=== PATIENT | male | born 1990 | race African-American/Black ===

== ENCOUNTER 2020-02-10 10:34 | Emergency (ER) | payer MEDICAID, SELFPAY ==
[2020-02-10 10:47] VITALS: BP 144/76; PULSE 83; RESP 15; TEMP 36.5; O2SAT 100
--- NOTE | 2020-02-10 11:09 | ED.GENADUL_ITS ---
Discharge Plan Disposition Patient Disposition: HOME Condition: Stable Discharge Details Chief Complaint: GenMedical Clinical Impression: Encounter for medication refill Primary Care Provider: None,None ED Provider: Breanna Garcia Home Meds and New Rx's Prescriptions: New quetiapine [Seroquel] 400 mg tablet 400 mg PO DAILY 10 Days Qty: 10 RF: 0 Discharge Instructions Instructions: Medicine Refill (ED) Additional Instructions: You were placed on a follow-up list for to establish primary care provider. At this time I am unable to refill your Ritalin prescription I will give you 10 days of the Seroquel. You need to be properly evaluated by primary care for the Ritalin prescription. Follow up with primary care provider in 3-5 days. Return to ED sooner if any worsening or concerns. Increase oral fluids. [facility] said that you are on a cancellation list so if they have a cancellation prior to the they will call you. Medical Decision Making 1110: Gissel from care management called and discussed patient case with her. She is going to call [facility] deceiving get a sooner appointment. [facility] checked and he has had no new prescriptions since March [id number] and the only prescriptions in the system are for lorazepam 1 mg tablet and dextro-amphetamine 30 mg tablet. litigation legal secretary spoke with Belinda in [facility] who reports that last prescription was Seroquel 400 mg once a day in October 2019. At this time patient has been off the medications for a long enough period that I feel he needs to be evaluated by a primary care provider prior to having his medication Ritalin represcribed. Care management is aware of the case and will refer to them for PCP establishment. At this time it is safe for patient to be discharged with community resources as he has no physical complaints at this time. Prescription written for 10 days of 400 mg Seroquel once a day until his appointment on the . HPI General Mode of arrival: ambulatory . Date/Time Provider Initiated Documentation: 02/10/20 10:40 . Limitations to Documentation: no limitations . Information obtained by: patient . HPI Narrative: 29-year-old male presents for a medication refill. Patient states that he was just released from half-way and is from [place] he is currently homeless. He is requesting refill of his Ritalin and Seroquel. He has no physical complaints at this time. He has a appointment with [facility] on February 21. Denies nausea vomiting diarrhea abdominal pain or fever. Related Data Home Medications Medication Instructions Recorded Confirmed quetiapine [Seroquel] 400 mg PO DAILY 10 Days #10 tab 02/10/20 Previous Rx's Medication Instructions Recorded quetiapine [Seroquel] 400 mg PO DAILY 10 Days #10 tab 02/10/20 Allergies Allergy/AdvReac Type Severity Reaction Status Date / Time haloperidol AdvReac dsytonia Unverified 02/10/20 10:43 olanzapine [From Zyprexa] AdvReac Unverified 02/10/20 10:43 risperidone AdvReac distonia Unverified 02/10/20 10:43 General Stated Complaint: GenMedical ODETTE: 5 Review of Systems Narrative: Constitutional: Negative for weight loss, alert and oriented, well groomed, normal body habitus, appears comfortable. HEENT: Denies trauma, headaches, blurry vision, nasal discharge, sore throat, trouble swallowing. Chest: Denies chest pain, palpitations, irregular rhythm, hypertension. Respiratory: Denies Shortness of breath, cough, hemoptysis. GI: Denies abdominal pain, nausea, vomiting, diarrhea, constipation. : Denies dysuria, hematuria, flank pain, rectal bleeding. Neuro: Denies dizziness, blurry vision, weakness, syncope, headache or facial numbness. Hematologic: Denies easy bruising, intolerance to heat or cold, hair loss. [facility] Social History Smoking/Tobacco Use Status: Former Tobacco Use Alcohol Intake: never Drug use: Never Additional Social history: Homeless Exam Narrative Exam Narrative: Constitutional: Allert and oriented x3. Appears stated age. Normal body habitus. Head: Normocephalic, no trauma. Eyes: Pupils PERRLA, Red reflex noted, EOM's intact. Eyelids symmetrical withour lesions, discharge, or swelling. ENT: Bilateral TM's WNL, External ear normal to inspection, no mastoid TTP, swelling, or erythema, Nasal turbinates WNL, no nasal discharge. Normal dentition, Posterior pharynx WNL, no exudate. Chest: RRR, Normal S1, S2, distal pulses intact. Resp: Lungs clear to auscultation bilaterally, no wheezes, rales, or rhonchi. Musculoskeletal: Normal gait, 5/5 strength to all four extremities. Skin: No suspicious rashes or lesions. Capillary refill ?2 sec. Neurologic: Cranial nerves II-XII intact. Alert and oriented x 3. DTR's intact. Hematologic/Lymphatic: No ecchymosis, no lymphadenopathy. Course Vital Signs Vital signs: Vital Signs Temperature 36.5 C 02/10/20 10:47 Pulse 83 02/10/20 10:47 Respiratory Rate 15 02/10/20 10:47 Blood Pressure 144/76 H 02/10/20 10:47 Pulse Oximetry 100 02/10/20 10:47 Temperature 36.5 C 02/10/20 10:47 Temperature Source Temporal Artery Scan 02/10/20 10:47 Pulse 83 02/10/20 10:47 Respiratory Rate 15 02/10/20 10:47 Respiratory Effort Non-Labored 02/10/20 10:55 Blood Pressure 144/76 H 02/10/20 10:47 Blood Pressure Position Sitting 02/10/20 10:47 Pulse Oximetry 100 02/10/20 10:47 Oxygen Delivery Method Room Air 02/10/20 10:47 Oxygen Flow Rate 0 02/10/20 10:47 Pain Level 0 02/10/20 10:47
--- NOTE | 2020-02-10 11:22 | CMPROGNOTE_ITS ---
- If Service Date Differs Date of service: 02/10/20 Time of Service: 11:22 Care Management Progress Note Ayaz has a February 22, 2020 appointment with a medication provider at [facility] ([facility]). CM contacts the intake office at [facility] to inquire if a sooner appointment can be made for Ayaz. Keiko at [facility] reports Ayaz made the appointment this morning and was offered the first available appointment. She is agreeable to adding his name to the cancellation list. CM will also coordinate PCP referral on behalf of patient.
--- NOTE | 2020-02-10 11:22 | PDOC.ERCMPRO ---
- If Service Date Differs Date of service: 02/10/20 Time of Service: 11:22 Care Management Progress Note Ayaz has a February 22, 2020 appointment with a medication provider at [facility] ([facility]). CM contacts the intake office at [facility] to inquire if a sooner appointment can be made for Ayaz. Keiko at [facility] reports Ayaz made the appointment this morning and was offered the first available appointment. She is agreeable to adding his name to the cancellation list. CM will also coordinate PCP referral on behalf of patient.
== END 2020-02-10 11:43 | disposition home or self-care (01) ==
PROVIDERS: Emergency Provider Registered Nurse Emergency
DX: Z65.2 Problems related to release from prison; Z76.0 Encounter for issue of repeat prescription
CPT/HCPCS: 99283; 99282

== ENCOUNTER 2021-11-06 12:39 | Emergency (ER) | payer MEDICARE, MEDICAID, SELFPAY ==
[2021-11-06 12:59] VITALS: BP 146/75; PULSE 116; RESP 20; TEMP 37.4; O2SAT 98
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
[2021-11-06 13:18] LABS: Bilirubin Negative (Negative); Blood Trace-intact (Negative); Clarity Sl Cloudy (Clear); Glucose Negative (Negative); Ketones Negative (Negative); Leukocyte Esterase Negative (Negative); Nitrite Negative (Negative); Urobilinogen 0.2 EU/dL (Up TO 0.2)
[2021-11-06 13:22] LABS: Source Nasal/Nares
[2021-11-06 13:26] LABS: Bacteria Rare HPF (Negative); C & S Indicated? No; Casts Negative LPF (Negative); Crystals Negative HPF (Negative); Epithelial Cells Rare HPF (Negative); Mucus Trace (Negative); WBC 0-2 HPF (0-5)
[2021-11-06 13:28] LABS: Abs Immature Grans 0.03 10^3/uL (0.0-0.06); Absolute Basophil Count 0.02 10^3/uL (0.0-0.2); Absolute Eosinophil Count 0.01 10^3/uL (0.0-0.7); Absolute Lymphocyte Count 1.37 10^3/uL (1.2-3.4); Absolute Monocyte Count 0.85 10^3/uL (0.1-0.8); Absolute Neutrophil Count 6.52 10^3/uL (1.2-6.7); Basophils % 0.2; Eosinophils % 0.1; HCT 42.4 % (40.0-50.0); HGB 14.5 g/dL (13.5-17.5); Immature Grans % 0.3; Lymphocytes % 15.6; MCH 31.1 pg (27.0-33.0); MCHC 34.2 % (32.0-36.0); MPV 9.7 fL (8.0-11.0); Monocytes % 9.7; Neutrophils % 74.1; Nucleated RBC 0 %; Platelet Count 315 10^3/uL (130-400); RBC 4.66 10^6/uL (4.36-5.78); RDW 12.2 % (11.8-14.1); RDW-SD 40.5 fL
[2021-11-06 13:40] LABS: *AMPHETAMINES SCREEN URINE Negative (Negative); *BARBITURATES SCREEN URINE Negative (Negative); *BENZODIAZEPINES SCREEN URINE Negative (Negative); Cannabinoids THC Negative (Negative); Cocaine Screen,Urine Negative (Negative); METHADONE URINE SCREEN Negative (Negative); OPIATES URINE SCREEN Negative (Negative)
[2021-11-06 13:41] LABS: Salicylate < 2.8 mg/dL (<2.8)
[2021-11-06 13:42] LABS: Tricyclic Antidepressants Negative (Negative)
[2021-11-06 13:42] LABS: Acetaminophen < 2 ug/mL (10-30)
[2021-11-06 13:48] LABS: ALT 52 U/L (16-63); AST 42 U/L (15-37); Albumin 4.3 g/dL (3.4-5.0); Alkaline Phosphatase 71 U/L (46-116); Anion Gap 8.6 mmol/L (3-11); BUN 12 mg/dL (7-18); Bilirubin, Total 0.5 mg/dL (0.2-1.0); CO2 28.4 mmol/L (21.0-32.0); CREATININE 0.9 mg/dL (0.70-1.30); Calcium 8.8 mg/dL (8.5-10.1); Chloride 102 mmol/L (98-107); Glucose 99 mg/dL (74-106); Potassium 3.6 mmol/L (3.5-5.1); Sodium 139 mmol/L (136-145); TSH (W/Ref FT4) 1.04 uIU/mL (0.36-3.74)
[2021-11-06 13:50] LABS: ETHANOL BLOOD < 3.0 mg/dL (<10)
[2021-11-06 14:05] LABS: COVID-19 PCR Negative (Negative)
--- NOTE | 2021-11-06 15:06 | CMSP_ITS ---
- If Service Date Differs Date of service: 11/06/21 Time of Service: 15:06 Care Management Safety Plan Status: Interim - Reason for Wait Reason for Wait: Assessment/Screening Chief Complaint: Ayaz is a 31 year old male who according to [facility] and [facility] Police was discharged from the [facility] ([facility]) yesterday (11/05/21). He reportedly was at [facility] for approximately one month before being discharged to the [facility] in [facility]. Miguel has a history of depression and schizophrenia, paranoid type, with positive symptoms that include hallucinations and delusions. Today, Ayaz is brought to [facility] by [facility] Police after being charged with destruction of private property. Ayaz reportedly told police that the FBI is trying to kill him and the only way to get them to stop is by destroying numerous vehicles in towns. CM will respond to ED to assess patient after patient has been medically cleared and assessed by screener. If screener deems patient meets criteria for psychiatric stabilization CM will facilitate interdepartmental huddle with [facility] screener for safety planning considerations and meet with patient to review [facility] policy and safety plan, establish individual wishes for treatment and maintain patient rights. In the interim; please note safety plan below to guide patient care while awaiting further assessment in the ED. SAFETY PLAN: 1. Will remain on suicide precautions and in paper clothes. 2. Will remain in room under direct supervision of one-on-one staff at all times provided by [employer]PSO, WEIGHT AND TEST BAR CLERK, PHOTOGRAMMETRIC SURVEYOR senior electrical engineer. 3. May have paper cups, plates, finger foods as well as a cardboard spoon with which to eat meals. 4. Follow [facility] Management of the Admitted Behavioral Health Patient policy. 5. Personal care: Comfort bath system only at this time. 6. Bathroom privileges with escort in ED. 6. No personal belongings at this time. 7. No visitors at this time. 8. Phone contact limited to legal contact at this time. 9. Activities: Soft cart items, music tablet and other activities at RN discretion. 10. Due to VOLUNTARY status, if patient wishes to leave [facility], staff will contact [facility] Crisis Screener ([phone]) and On-Call [employer] ([phone]) as soon as possible. In the event of elopement, notify [facility] Police ([phone]). If deemed appropriate for inpatient psychiatric care, safety plan will be established with patient, and care team, to adhere to patient goals, identify restrictions based on behavioral status, address nutrition, and determine allowed personal belongings, tools for hygiene and personal care. As well plan will determine level of activity including ambulation, level of supervision, visitors, and determine privileges based on level of acuity, behaviors and level of engagement by patient.
[2021-11-06] MEDS: LORazepam 1 MG TAB 2 MG PO (16:51)
--- NOTE | 2021-11-06 17:20 | CMSP_ITS ---
- If Service Date Differs Date of service: 11/06/21 Time of Service: 17:22 Care Management Safety Plan Status: Voluntary - Reason for Wait Reason for Wait: Inpatient Admission VOLUNTARY FOR INPATIENT PSYCHIATRIC STABILIZATION. Patient is appropriate in all interactions since arriving at [facility]; Pt has demonstrated appropriate coping and communication skills, has articulated his or her needs and concerns and is fully engaged during staff interactions. A huddle is held at 17:45 pm with Gilda, Nursing Home And Family Living Professor, GIORGIO Acosta, and KAILYN Chauhan, in attendance. Safety plan has been established with patient, and care team, to adhere to patient goals, identify restrictions based on behavioral status, address nutrition, and determine allowed personal belongings, tools for hygiene and personal care. Determine level of activity including ambulation, level of supervision, visitors, and determine privileges based on behaviors and level of engagement by pt. SAFETY PLAN: 1. Will remain on suicide precautions. In Paper Clothes 2. Will remain in room under direct supervision of one-on-one staff at all times provided by CPSO, BLAIRE, FRONT OFFICE CLERK positive printer operator. 3. May have paper cups, plates, finger foods as well as a cardboard spoon with which to eat meals. 4. Follow [facility] Management of the Admitted Behavioral Health Patient policy. 5. Comfort bath system only. 6. No personal belongings. 7. Visitors-No visitors at this time 8. Activities: Soft cart items, crayons, coloring books, music tablet, television if available, and other activities at RN discretion. 9. Bathroom privileges with escort while in the ED; may use bathroom in room on Med/Surg without limitation. 10. Phone: May use hospital phone at RN discretion. 11. Due to VOLUNTARY status, if patient wishes to leave [facility], staff will contact [facility] Crisis Screener ([phone]) and On-Call El[employer] C[employer] ([phone]) as soon as possible. In the event of elopement, notify [place] [employer] Police ([phone]). Patient is currently voluntarily at [facility] and seeking inpatient admission when a bed becomes available. [facility] Frontline [employer] Consultant will continue seeking placement. Please contact the Family Preservation Worker Elastic Cutter ([phone]) and [facility] Microsoft Dynamics Consultant ([phone]) for any needed changes in the Safety Plan. Safety plan has been provided to interdepartmental care team.
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
--- NOTE | 2021-11-06 20:28 | NUR.NOTE ---
Nursing Note: [employer] officer dropped off notice of court appearance request for tomm. and a do not trespass order for the patient from the [facility]. After officer left, patient requested if care management or PD could remove his belongings from the hotel. Left message with dispatch to have officer to call ER to discuss this. I did verbalize to pt that the officers may not be allowed to do so.
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
--- NOTE | 2021-11-06 23:07 | NUR.NOTE ---
Nursing Note: [employer] called back and is unable to go to the hotel to get patient's belongings. The patient also had wanted to ask us how he was supposed to go to his hearing tomm. Officer Edmund, who served patient with the do not trespass order and order to appear at court advised that patient should contact public address system operator and get information about how he should appear (via tele or phone). Officer states he is unable to retrieve patient belongings and advises that pt can try calling the hotel to hold his belongings until someone is able to get them for him. Unable to reach [facility].
[2021-11-07] MEDS: LORazepam 1 MG TAB 2 MG PO ×3 (11:23→22:48)
--- NOTE | 2021-11-07 13:11 | W.PSYCHFU ---
Date of Service Date of service: 11/07/21 Time of Service: 13:11 Assessment and Plan Assessment and plan (1) Schizophrenia: Status: Chronic Assessment and plan: Continue to titrate seroquel XR to target dose of 600 mg HS Provide patient with medication information about clozapine Referral for inpatient psychiatry pending Follow up 11/08 (2) Psychosis: Status: Acute (3) Hallucinations: Status: Acute Psychiatry Subjective Narrative:: Seen in follow up through telemedicine. Indicates he feels slightly better having gotten a decent night's sleep. He received seroquel XR 500 mg at HS and is agreeable to taking 550 mg at HS tonight. Core psychotic symptoms as described at admission remain unchanged and he states with considerable distress I feel wally it's getting worse. And it gets really bad!. No physical or verbal aggression noted. Discussions with [place] underway about voluntary admission. He states I was there before but they discharged me even though I wasn't better. He is counseled that as long as he continues to resist trying alternative to his current medication regimen, the chances of meaningful improvement are limited and hospitals are unlikely tokeep him yemi shelter if he is unwilling to accept recommend treatment. I discuss a trial of clozapine with his again and he agrees to accept patient mediation information about it. Case is discussed with Dr. Conteh, who agrees with recommended approach to treatment. Exam Psych Appearance: other (unkempt, hospital arjun, NAD) Mental Status: mental status grossly normal Speech and Movement: pressured speech and restless Mood: anxious mood, dysthymic mood and irritable mood Affect: labile affect, sad and anxious affect Attitude: cooperative Thought Process: normal Thought Content: delusions Insight: limited Judgment: limited Objective Medications: Active Inpatient Medications Report Generic Name Dose Route Start Last Admin Trade Name Freq PRN Reason Stop Dose Admin Quetiapine Fumarate 550 mg 11/07/21 22:00 Quetiapine 50 Mg Tabcr PO HS ANA Discontinued Medications Generic Name Dose Route Start Last Admin Trade Name Freq PRN Reason Stop Dose Admin Lorazepam 2 mg 11/06/21 16:36 11/06/21 16:51 Lorazepam 1 Mg Tab PO 11/06/21 16:37 2 mg NOW ONE Administration Lorazepam 2 mg 11/07/21 11:13 11/07/21 11:23 Lorazepam 1 Mg Tab PO 11/07/21 11:14 2 mg NOW ONE Administration Quetiapine Fumarate 500 mg 11/06/21 18:31 11/06/21 19:31 Quetiapine 50 Mg Tabcr PO 11/06/21 18:32 500 mg NOW ONE Administration Labs Last 24 Hours: Laboratory Results - last 24 hr 11/06/21 11/06/21 11/06/21 13:04 13:04 13:15 WBC RBC Hgb Hct MCV MCH MCHC RDW Plt Count MPV Immature Gran % Neutrophils % Lymphocytes % Monocytes % Eosinophils % Basophils % Nucleated RBC % Absolute Neutrophils Absolute Lymphocytes Absolute Monocytes Absolute Eosinophils Absolute Basophils Sodium 139 Potassium 3.6 Chloride 102 Carbon Dioxide 28.4 Anion Gap 8.6 BUN 12 Creatinine 0.9 Estimated GFR/1.73 m2 >= 60.00 Glucose 99 Calcium 8.8 Total Bilirubin 0.5 AST 42 H ALT 52 Alkaline Phosphatase 71 Total Protein 8.0 Albumin 4.3 TSH 1.04 Urine Color Yellow Urine Clarity Sl Cloudy Urine pH 6.0 Ur Specific [place] 1.020 Urine Protein Negative Urine Ketones Negative Urine Blood Trace-intact H Urine Nitrite Negative Urine Bilirubin Negative Urine Urobilinogen 0.2 Ur Leukocyte Esterase Negative Urine RBC 3-5 H Urine WBC 0-2 Ur Epithelial Cells Rare Urine Crystals Negative Urine Bacteria Rare Urine Casts Negative Urine Mucus Trace Ur Culture Indicated? No Urine Glucose Negative Salicylates Urine Opiates Screen Negative Urine Methadone Screen Negative Acetaminophen Ur Barbiturates Screen Negative Ur Tricyclics Screen Negative Ur Amphetamines Screen Negative U Benzodiazepines Scrn Negative Urine Cocaine Screen Negative Ur THC Screen Negative Ethyl Alcohol < 3.0 COVID-19 Source SARS-CoV-2 (PCR) 11/06/21 11/06/21 11/06/21 13:15 13:15 13:15 WBC 8.80 RBC 4.66 Hgb 14.5 Hct 42.4 MCV 91.0 MCH 31.1 MCHC 34.2 RDW 12.2 Plt Count 315 MPV 9.7 Immature Gran % 0.3 Neutrophils % 74.1 Lymphocytes % 15.6 Monocytes % 9.7 Eosinophils % 0.1 Basophils % 0.2 Nucleated RBC % 0 Absolute Neutrophils 6.52 Absolute Lymphocytes 1.37 Absolute Monocytes 0.85 H Absolute Eosinophils 0.01 Absolute Basophils 0.02 Sodium Potassium Chloride Carbon Dioxide Anion Gap BUN Creatinine Estimated GFR/1.73 m2 Glucose Calcium Total Bilirubin AST ALT Alkaline Phosphatase Total Protein Albumin TSH Urine Color Urine Clarity Urine pH Ur Specific [place] Urine Protein Urine Ketones Urine Blood Urine Nitrite Urine Bilirubin Urine Urobilinogen Ur Leukocyte Esterase Urine RBC Urine WBC Ur Epithelial Cells Urine Crystals Urine Bacteria Urine Casts Urine Mucus Ur Culture Indicated? Urine Glucose Salicylates < 2.8 Urine Opiates Screen Urine Methadone Screen Acetaminophen < 2 Ur Barbiturates Screen Ur Tricyclics Screen Ur Amphetamines Screen U Benzodiazepines Scrn Urine Cocaine Screen Ur THC Screen Ethyl Alcohol COVID-19 Source Nasal/Nares SARS-CoV-2 (PCR) Negative
--- NOTE | 2021-11-07 15:02 | PDOC.CMSAFED ---
- If Service Date Differs Date of service: 11/07/21 Time of Service: 15:02 Care Management Safety Plan Status: Voluntary - Reason for Wait Reason for Wait: Inpatient Admission VOLUNTARY FOR INPATIENT PSYCHIATRIC STABILIZATION. Patient is appropriate in all interactions since arriving at [facility]; Pt has demonstrated appropriate coping and communication skills, has articulated his or her needs and concerns and is fully engaged during staff interactions. A huddle is held at 14:40 pm with Nellie, Nursing Patient Service Associate, GIORGIO Wolfe, and KAILYN Chauhan, in attendance. Safety plan has been established with patient, and care team, to adhere to patient goals, identify restrictions based on behavioral status, address nutrition, and determine allowed personal belongings, tools for hygiene and personal care. Determine level of activity including ambulation, level of supervision, visitors, and determine privileges based on behaviors and level of engagement by pt. SAFETY PLAN: 1. Will remain on suicide precautions. In Paper Clothes 2. Will remain in room under direct supervision of one-on-one staff at all times provided by CPSO, BLAIRE, LALITO director telecommunications. 3. May have paper cups, plates, finger foods as well as a cardboard spoon with which to eat meals. 4. Follow [facility] Management of the Admitted Behavioral Health Patient policy. 5. May shower with supervision and at RN discretion. 6. No personal belongings. 7. Visitors-No visitors at this time 8. Activities: Soft cart items, crayons, coloring books, music tablet, television if available, and other activities at RN discretion. 9. Bathroom privileges with escort while in the ED; may use bathroom in room on Med/Surg without limitation. 10. Phone: May use hospital phone at RN discretion. 11. Due to VOLUNTARY status, if patient wishes to leave [facility], staff will contact [facility] Crisis Screener ([phone]) and On-Call Studio Owner ([phone]) as soon as possible. In the event of elopement, notify [facility] Police ([phone]). Patient is currently voluntarily at [facility] and seeking inpatient admission when a bed becomes available. [facility] Frontline Franchise Business Consultant will continue seeking placement. Please contact the Talent Acquisition Program Manager Studio Owner ([phone]) and [facility] Franchise Business Consultant ([phone]) for any needed changes in the Safety Plan. Safety plan has been provided to interdepartmental care team.
--- NOTE | 2021-11-07 15:04 | CMPROGNOTE_ITS ---
- If Service Date Differs Date of service: 11/07/21 Time of Service: 15:04 Care Management Progress Note S/O: CM assists Ayaz in obtaining phone numbers for his public safety teacher and for the courthouse, as he was scheduled to appear in court for an arraignment today. CM also contacts the [facility] to request that his things be gathered from his room so someone from [facility] can come pick them up and bring them to the hospital. Ayaz expresses concern about his wallet which is at the [facility] Police [employer] but attempts at obtaining his wallet from the police have thus far been unsuccessful. CM will continue to follow. A: Ayaz is a 31 year old male who remains at [facility] while awaiting a psych placement. P: [facility]errals are [facility] to [facility], [facility], [facility], and [facility] for review. There are no available beds today. Ayaz will remain at [facility] while [facility] continues to seek a voluntary placement for him. He will be reassessed daily by [facility] until placement is secured. CM will continue to follow.
--- NOTE | 2021-11-07 15:04 | PDOC.ERCMPRO ---
- If Service Date Differs Date of service: 11/07/21 Time of Service: 15:04 Care Management Progress Note S/O: CM assists Ayaz in obtaining phone numbers for his publicity director and for the courthouse, as he was scheduled to appear in court for an arraignment today. CM also contacts the [facility] to request that his things be gathered from his room so someone from [facility] can come pick them up and bring them to the hospital. Ayaz expresses concern about his wallet which is at the [facility] Police Department but attempts at obtaining his wallet from the police have thus far been unsuccessful. CM will continue to follow. A: Ayaz is a 31 year old male who remains at [facility] while awaiting a psych placement. P: Referrals are faxed to [facility], [facility], [facility], and [facility] for review. There are no available beds today. Ayaz will remain at [facility] while [facility] continues to seek a voluntary placement for him. He will be reassessed daily by [facility] until placement is secured. CM will continue to follow.
--- NOTE | 2021-11-07 20:00 | NUR.NOTE ---
Nursing Note: Attempted to take vitals on pt. Pt refused and requested Ativan and a tablet.
[2021-11-08] MEDS: LORazepam 1 MG TAB 2 MG PO ×3 (10:32→19:18)
--- NOTE | 2021-11-08 16:31 | PDOC.CMSAFED ---
- If Service Date Differs Date of service: 11/08/21 Time of Service: 16:31 Care Management Safety Plan Status: Voluntary - Reason for Wait Reason for Wait: Inpatient Admission VOLUNTARY FOR INPATIENT PSYCHIATRIC STABILIZATION. Patient is appropriate in all interactions since arriving at [facility]; Pt has demonstrated appropriate coping and communication skills, has articulated his or her needs and concerns and is fully engaged during staff interactions. Safety plan has been established with patient, and care team, to adhere to patient goals, identify restrictions based on behavioral status, address nutrition, and determine allowed personal belongings, tools for hygiene and personal care. Determine level of activity including ambulation, level of supervision, visitors, and determine privileges based on behaviors and level of engagement by pt. SAFETY PLAN: 1. Will remain on suicide precautions. In Paper Clothes 2. Will remain in room under direct supervision of one-on-one staff at all times provided by CPSO, LIAISON OFFICER, SHEET METAL SMITH railroad baggage porter. 3. May have paper cups, plates, finger foods as well as a cardboard spoon with which to eat meals. 4. Follow [facility] Management of the Admitted Behavioral Health Patient policy. 5. May shower with supervision and at RN discretion. 6. No personal belongings. 7. Visitors-No visitors at this time 8. Activities: Soft cart items, crayons, coloring books, music tablet, television if available, and other activities at RN discretion. 9. Bathroom privileges with escort while in the ED; may use bathroom in room on Med/Surg without limitation. 10. Phone: May use hospital phone at RN discretion. 11. Due to VOLUNTARY status, if patient wishes to leave [facility], staff will contact [facility] Crisis Screener ([phone]) and On-Call Car Supervisor ([phone]) as soon as possible. In the event of elopement, notify [place] Police ([phone]). Patient is currently voluntarily at [facility] and seeking inpatient admission when a bed becomes available. [facility] Frontline Pyridine Recovery Operator will continue seeking placement. Please contact the Physics Technician Car Supervisor ([phone]) and [facility] Pyridine Recovery Operator ([phone]) for any needed changes in the Safety Plan. Safety plan has been provided to interdepartmental care team.
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
[2021-11-08] MEDS: LORazepam 2 MG/ML VIAL 1.5 MG IM (22:32)
[2021-11-08] MEDS: diphenhydrAMINE 50 MG/ML VIAL IM (22:44)
[2021-11-08] MEDS: LORazepam 2 MG/ML VIAL IM (23:21)
[2021-11-09] MEDS: diphenhydrAMINE 25 MG CAP 50 MG PO (14:15)
[2021-11-09] MEDS: LORazepam 1 MG TAB 2 MG PO (14:16)
--- NOTE | 2021-11-09 14:33 | CMSP_ITS ---
- If Service Date Differs Date of service: 11/09/21 Time of Service: 14:33 Care Management Safety Plan Status: Voluntary - Reason for Wait Reason for Wait: Inpatient Admission VOLUNTARY FOR INPATIENT PSYCHIATRIC STABILIZATION. Patient is appropriate in all interactions since arriving at [facility]; Pt has demonstrated appropriate coping and communication skills, has articulated his or her needs and concerns and is fully engaged during staff interactions. Safety plan has been established with patient, and care team, to adhere to patient goals, identify restrictions based on behavioral status, address nut rition, and determine allowed personal belongings, tools for hygiene and personal care. Determine level of activity including ambulation, level of supervision, visitors, and determine privileges based on behaviors and level of engagement by pt. SAFETY PLAN: 1. Will remain on suicide precautions. In Paper Clothes 2. Will remain in room under direct supervision of one-on-one staff at all times provided by [employer], ASSISTANT PROFESSOR NURSE EDUCATION, PAPER CUP MACHINE OPERATOR director [employer] for [employer]. 3. May have paper cups, plates, finger foods as well as a cardboard spoon with which to eat meals. 4. Follow [facility] Management of the Admitted Behavioral Health Patient policy. 5. May shower with supervision and at RN discretion. 6. No personal belongings. 7. Visitors-No visitors at this time 8. Activities: Soft cart items, crayons, coloring books, music tablet, television if available, and other activities at RN discretion. 9. Bathroom privileges with escort while in the ED; may use bathroom in room on Med/Surg without limitation. 10. Phone: May use hospital phone at RN discretion. 11. Due to VOLUNTARY status, if patient wishes to leave [facility], staff will contact [facility] Crisis Screener ([phone]) and On-Call Heavy Antiarmor Weapons Infantryman ([phone]) as soon as possible. In the event of elopement, notify [place] [employer] ([phone]). Patient is currently voluntarily at [facility] and seeking inpatient admission when a bed becomes available. [facility] Frontline Ice Hockey Coach will continue seeking placement. Please contact the Track Watchman Heavy Antiarmor Weapons Infantryman ([phone]) and [facility] Ice Hockey Coach ([phone]) for any needed changes in the Safety Plan. Safety plan has been provided to interdepartmental care team.
--- NOTE | 2021-11-09 15:40 | PDOC.ERCMPRO ---
- If Service Date Differs Date of service: 11/09/21 Time of Service: 15:40 Care Management Progress Note S/O: Ayaz is sitting up in bed watching videos on the tablet when CM comes to meet with him. He is irritable and asks if the State has notified me of the findings of yesterday's competency/insanity eval. I advise him that the State is not likely to talk to me about the results of the evaluation. I also tell him that I called the [facility] to inquire about his lost earbuds and was informed that they do not have them. Ayaz then asks for his belongings so he can go through them and I let him know that I will need to discuss that with his treatment team before it is allowed. CM will continue to follow. A: Ayaz is a 31 year old male who remains at [facility] while awaiting a psych placement. P: Late afternoon, Suman Mccormack of [facility] reports that he has spoken with Nia, [facility] healthcare financial analyst, about Ayaz's case. [facility] is recommending that Ayaz be discharged as he does not meet criteria for a voluntary hospitalization at this time. Ayaz is discharged to the community.
[2021-11-09 15:45] VITALS: BP 146/96; PULSE 133; RESP 18; TEMP 36.7; O2SAT 99
--- NOTE | 2021-11-09 15:48 | NUR.NOTE ---
pt verbalized feeliing anxious he is requesting additional medicine for this and would like it in a shot so that it works faster ED physician notified , V.S. obtained . he kept the Sa02 monitor on his finger for 15 to monitor his Heart rate . it stayed at 125 . he is watching a movie Nursing Note:
--- NOTE | 2021-11-09 16:27 | NUR.NOTE ---
pt did doze off for about 10 min. he then sat back up and requested the additional medication again . he also wanted his I pad back
--- NOTE | 2021-11-09 16:29 | NUR.NOTE ---
he is again watching a movie . I told him that Dr Huffman might not agrree to more more medication untill later. he said thank you Nursing Note:
--- NOTE | 2021-11-09 16:48 | NUR.NOTE ---
1650 pt was discharged ambulatory . where am I going you cant just do this, you are evil where are my belongings his belongings have been given to the police who where waiting out side . he ambulated out the ambulance door. Nursing Note:
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
== END 2021-11-09 16:47 | disposition home or self-care (01) ==
PROVIDERS: Physician Assistant; Emergency Provider Physician Assistant
DX: R44.0 Auditory hallucinations (principal); R44.1 Visual hallucinations; F20.9 Schizophrenia, unspecified; T43.626A Underdosing of amphetamines, initial encounter; T43.506A Underdosing of unspecified antipsychotics and neuroleptics, initial encounter; Z91.128 Patient's intentional underdosing of medication regimen for other reason; Z20.822 Contact with and (suspected) exposure to COVID-19; Z03.818 Encounter for observation for suspected exposure to other biological agents ruled out
CPT/HCPCS: 36415; 80053; 80307; 87635; 99285; Q3014; 80320; 80329; 81003; 81015; 84443; 85025; J1200; J2060; J3490